=== PATIENT | male | born 1975 | race African-American/Black ===

== ENCOUNTER 2018-08-15 22:26 | Emergency (ER) | payer SELFPAY ==
[~2018-08-15] VITALS: Ht 177.8 cm; Wt 79.4 kg
[2018-08-15 22:40] VITALS: BP 144/96
[2018-08-15 22:48] VITALS: BP_SYST 133; BP_SYST 142; BP_DIAS 83; BP_DIAS 96
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
== END 2018-08-15 22:50 ==
LOC: EDBD 22:26 → EMR 22:48
DX: Z02.89 Encounter for other administrative examinations (principal); F14.10 Cocaine abuse, uncomplicated; G31.84 Mild cognitive impairment of uncertain or unknown etiology
CPT/HCPCS: 99283